=== PATIENT | male | born 1955 | race Caucasian/White ===

== ENCOUNTER 2017-03-11 19:47 | Inpatient (IN) | payer OTHER ==
[~2017-03-11] VITALS: Ht 172.7 cm; Wt 74.4 kg
--- NOTE | 2017-03-11 20:15 | NUR ---
OX SAT SEEN AT 92%, O2 2L VIA NC APPLIED, O2 SAT UP TO 98%
--- NOTE | 2017-03-11 20:17 | NUR ---
PT BIBA TO ED FOR CO DIZZINESS. PER MEDIC PT WAS DRIVING FROM [place] WHEN HE BEGAN FEELING DIZZY. FAMILY MEMBER THEN TOOK OVER DRIVING WHILE PT TOOK A NAP, WHEN PT WOKE UP HE SAID HE FELT BETTER AND BEGAN DRIVING "3 HRS" PER PT. AT APPROX 1900 PT WOKE FROM ANOTHER NAP AND REPORTS "FEELING FEAR" PER MEDIC AND THEN REPORTS NAUSEA AND ONE EPISODE OF VOMITTING. PT WAS GIVEN 4G ZOFRAN PO EN ROUTE. PT BS WAS 119 ON SCENE. 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 PT TAKES ASA REGULARLY; DENIES ALLERGIES TO MEDS. PT AAO4, RESP E/U, REPORTS HEADACHE OF 10/06. FAMILY MEMBERS AT BEDSIDE
--- NOTE | 2017-03-11 20:20 | NUR ---
PT CONNECTED TO FULL CM
[2017-03-11 21:03] LABS: BASOPHIL % 0.5 % (0-2); PLATELET COUNT 136 x10^3mcL (130-400); RED CELL DISTRIBUTION WIDTH 13.6 % (11.5-14.5)
--- NOTE | 2017-03-11 21:16 | NUR ---
PT IN BED IN POSITION OF COMFORT, CONVERSING WITH FAMILY. PT AAO4, RESP E/U, NO CO PAIN AT THIS TIME
[2017-03-11 21:21] LABS: CALCIUM 8.3 mg/dL (8.5-10.1); CREATININE SERUM 1.4 mg/dL (0.7-1.3); POTASSIUM SERUM 3.7 mmol/L (3.5-5.1)
[2017-03-11 21:25] LABS: ALBUMIN 3.5 g/dL (3.4-5.0); BILIRUBIN TOTAL 0.6 mg/dL (0.20-1.00); MAGNESIUM 1.9 mg/dL (1.8-2.4); TOTAL PROTEIN, SERUM 6.9 g/dL (6.4-8.2)
--- NOTE | 2017-03-11 22:40 | NUR ---
PT AMBULATED UP AND DOWN CANAS. STS HIS DIZZINESS IS AT 1/10 AT THIS TIME, STS NO PAIN. PT AAO4; RESP E/U
[2017-03-11] MEDS ORDERED: BYSTOLIC10 M1 PO (23:17)
[2017-03-11] MEDS ORDERED: VAS1025 PO (23:18)
--- NOTE | 2017-03-11 23:41 | NUR ---
REPORT GIVEN TO JER TO ASSUME CARE OF PT
[2017-03-12] VITALS (7 sets, daily range): BP systolic 123–161; BP diastolic 72–95
--- NOTE | 2017-03-12 00:12 | NUR ---
PT TRANSFERRED TO TELE BED 204B VIA RMONA ON CM WITH MY SELF, JESUS SIMON, AND EMT ESCOBAR AND RADHA AT PT SIDE. PT FAMILY ALSO AT THE BEDSIDE AT TIME OF TRANSFER. PT A&OX4, NO ACUTE DISTRESS NOTED, RESP EVEN AND UNLABORED, AMBUALTED TO TELE BED WITH STEADY GAIT. JESUS RANDLE AT THE BEDSIDE TO ASSUME C ARE OF PT. PT TRANSFERRED WITHOUT INCIDENCE.
--- NOTE | 2017-03-12 00:30 | NUR ---
RECEIVED PATIENT FROM ED VIA GUERNEY, PATIENT IN NO ACUTE DISTRESS, NO C/O PAIN AT THIS TIME, ALERT AND ORIENTED FAMILY AT BEDSIDE, TELE # 25 SB, ORIENTED PATIENT TO ROOM AND SURROUNDINGS, BED RAILS UP X 2, CALL LIGHT WITHIN REACH, WILL ENDORSE CARE TO PRIMARY NURSE JER LEE
--- NOTE | 2017-03-12 00:30 | NUR ---
RECEIVED PT. AWAKE AND ALERT. NO C/O PAIN. NO DISTRESS NOTED. IV ON L HAND, NS INFUSING. SAFETY MEASURES IN PLACE. INSTRUCTED PT TO CALL IF ASSISTANCE IS NEEDED. CALL LIGHT WITHIN REACH.
[2017-03-12 01:26] LABS: T3 TOTAL 1.06 ng/mL
[2017-03-12 01:31] LABS: UA SPECIFIC GRAVITY 1.025 (1.005-1.035); microscopic required? YES; urine erythrocyte NEGATIVE (NEGATIVE)
[2017-03-12 01:33] LABS: CHOLESTEROL/HDL RATIO 4.8; PHOSPHOROUS 3.1 mg/dL (2.5-4.9)
[2017-03-12 01:36] LABS: FREE T4 1.1 ng/dL (0.76-1.46); FREE THYROXINE INDEX 2.2 ug/dL (1.4-4.5); T4(THYROXINE) 6.2 ug/dL (4.7-13.3)
[2017-03-12 01:42] LABS: AMPHETAMINE QUAL UR NONE DETECTED (NEG <=1000)
[2017-03-12] MEDS ORDERED: LISINOPRIL40 MG PO (04:16)
[2017-03-12 06:18] LABS: BASOPHIL % 0.4 % (0-2); RED CELL DISTRIBUTION WIDTH 13.4 % (11.5-14.5)
[2017-03-12 06:24] LABS: CARBON DIOXIDE 25.5 mmol/L (21-32); CHLORIDE SERUM 107 mmol/L (98-107); CREATININE SERUM 1.3 mg/dL (0.7-1.3); GFR1 > 60 mL/min; GLUCOSE SERUM 109 mg/dL (74-106); MAGNESIUM 1.9 mg/dL (1.8-2.4); SODIUM SERUM 140 mmol/L (136-145)
--- NOTE | 2017-03-12 07:00 | NUR ---
PT SLEPT AT LONG INTERVALS DURING SHIFT. NO C/O PAIN. NO DISTRESS NOTED. SAFETY MEASURES MAINTAINED. BED IN LOWEST POSITION. SIDE RAILS UP X2. CALL LIGHT WITHIN REACH. WILL ENDORSE CONTINUITY OF CARE TO DAY SHIFT RN.
[2017-03-12 07:05] LABS: PLATELET COUNT 126 x10^3mcL (130-400)
--- NOTE | 2017-03-12 07:57 | NUR ---
PT RECEIVED DURING CHANGE OF SHIFT, A/OX4, DENIES DIZZINESS, TELE 25, SB, DENIES CHEST PAIN, PULSES PRESENT, NO EDEMA, LUNGS CTA ON RA, DENIES SOB, BREATHING EVEN AND UNLABORED, LBM 03/11/17, DENIES N/V/D, ABLE TO VOID, AMBULATORY, SKIN WARM DRY INTACT, DENIES ALL PAIN AT THIS TIME, IV TO LT HAND INFUSING NS AT 115ML/HR, CALM AND COOPERATIVE, CALL LIGHT WITHIN REACH, WILL CONTINUE TO MONITOR.
--- NOTE | 2017-03-12 08:30 | NUR ---
PT DENIES SOB, DENIES PAIN, VSS, MED EDUCATION GIVEN, CALL LIGHT WITHIN REACH, WILL CONTINUE TO MONITOR.
--- NOTE | 2017-03-12 08:30 | NUR ---
DR. COLEMAN AND RESIDENTS MAKING ROUNDS, PLAN OF CARE DISCUSSED.
--- NOTE | 2017-03-12 09:14 | NUR ---
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
--- NOTE | 2017-03-12 10:32 | NUR ---
ECHO IN PROGRESS, DENIES SOB, DENIES PAIN, WILL CONTINUE TO MONITOR.
--- NOTE | 2017-03-12 11:26 | NUR ---
PT DENIES SOB, DENIES PAIN, CALL LIGHT WITHIN REACH, VISITORS AT BEDSIDE, WILL CONTINUE TO MONITOR.
--- NOTE | 2017-03-12 12:08 | NUR ---
PT DENIES SOB, DENIES PAIN, SIGNED CONSENT TO RELEASE INFORMATION, CALL LIGHT WITHIN REACH, WILL CONTINUE TO MONITOR.
--- NOTE | 2017-03-12 13:14 | NUR ---
PT DENIES SOB, DENIES PAIN, VISITORS AT BEDSIDE, CALL LIGHT WITHIN REACH, WILL CONTINUE TO MONITOR.
--- NOTE | 2017-03-12 14:24 | NUR ---
PT DENIES SOB, DENIES PAIN, VISITORS AT BEDSIDE, CALL LIGHT WITHIN REACH, WILL CONTINUE TO MONITOR.
--- NOTE | 2017-03-12 15:14 | NUR ---
PT DENIES SOB, DENIES PAIN, VISITORS AT BEDSIDE, CALL LIGHT WITHIN REACH, WILL CONTINUE TO MONITOR.
--- NOTE | 2017-03-12 16:25 | NUR ---
PT DENIES SOB, DENIES PAIN, VISITORS AT BEDSIDE, CALL LIGHT WITHIN REACH, WILL CONTINUE TO MONITOR.
--- NOTE | 2017-03-12 17:12 | NUR ---
PT DENIES SOB, DENIES PAIN, CALL LIGHT WITHIN REACH, WILL CONTINUE TO MONITOR.
--- NOTE | 2017-03-12 18:36 | NUR ---
PT DENIES SOB, DENIES PAIN, FAMILY AT BEDSIDE, CALL LIGHT WITHIN REACH, WILL ENDORSE PT TO NEXT SHIFT.
--- NOTE | 2017-03-12 19:25 | NUR ---
SEEN IN BED AAOX4. DENIES DIZZINESS AT THIS TIME. SB AT 58 WITH BBB AND DEPRESSED T. DENIES CHEST PAIN. LUNG SOUND CTA. BREATHING EASY ON ROOM AIR. ABD SOFT AND ROUND. BRP. STS VOIDS FREELY. IVF NS AT 115ML/HR INFUSING WELL TO LT HAND IV SITE. SCD TO BLE. PLAN OF CARE DISCUSSED. CALL LIGHT PLACED WITHIN EASY REACH. SIDERAILS UP X2.
--- NOTE | 2017-03-13 05:49 | NUR ---
NO ANY DISTRESS THROUGHOUT SHIFT. DENIES CHEST PAIN OR DIZZINESS. IVF NS INFUSING WELL.
[2017-03-13 05:58] VITALS: BP 126/83
[2017-03-13 06:12] LABS: BASOPHIL % 0.7 % (0-2); RED CELL DISTRIBUTION WIDTH 13.4 % (11.5-14.5)
[2017-03-13 06:22] LABS: CALCIUM 8.3 mg/dL (8.5-10.1); CHLORIDE SERUM 108 mmol/L (98-107); CREATININE SERUM 1.3 mg/dL (0.7-1.3); GFR1 > 60 mL/min; GLUCOSE SERUM 98 mg/dL (74-106); POTASSIUM SERUM 4.3 mmol/L (3.5-5.1); SODIUM SERUM 140 mmol/L (136-145)
[2017-03-13 06:53] LABS: PLATELET COUNT 125 x10^3mcL (130-400)
--- NOTE | 2017-03-13 07:15 | NUR ---
PT RECEIVED DURING CHANGE OF SHIFT, A/OX4, DENIES LIGHT HEADEDNESS/DIZZINES, TELE 25, SB BBB, DENIES CHEST PAIN, PULSES PRESENT, NO EDEMA, LUNGS CTA ON RA, DENIES SOB, BOWEL SOUNDS ACTIVE, LBM 03/11/17, DENIES N/V/D PT ABLE TO VOID, AMBULATORY, SKIN WARM DRY INTACT, DENIES PAIN, IV TO LT HAND INFUSING NS AT 115ML/HR, CALL LIGHT WITHIN REACH, WILL CONTINUE TO MONITOR.
--- NOTE | 2017-03-13 08:11 | NUR ---
PT DENIES SOB, DENIES PAIN, WATCHING TV, MED EDUCATION GIVEN, CALL LIGHT WITHIN REACH, WILL CONTINUE TO MONITOR.
[2017-03-13] MEDS ORDERED: ASPIR 8181 MG PO (08:33)
[2017-03-13] MEDS ORDERED: LIPI10 PO (08:33)
--- NOTE | 2017-03-13 09:29 | NUR ---
DR. CHEATHAM AND RESIDENTS MAKING ROUNDS, PT MADE AWARE THEY WILL BE ABLE TO DISCHARGE TODAY.
[2017-03-13 09:42] VITALS: BP 145/94
--- NOTE | 2017-03-13 10:12 | NUR ---
PT DENIES SOB, DENIES PAIN, CALL LIGHT WITHIN REACH, WILL CONTINUE TO MONITOR.
[2017-03-13 10:15] VITALS: BP 145/94
--- NOTE | 2017-03-13 10:58 | NUR ---
PT AND FAMILY RECEIVED DISCHARGE INSTRUCTIONS, VERBALIZED UNDERSTANDING, ALL QUESTIONS ANSWERED, SCRIPT GIVEN, IV DC'D CATHETER INTACT, TELE 25 DC'D AND RETURNED TO MONITOR STATION, ARMBAND DC'D, PT DRESSED AND ESCORTED DOWN TO DISCHARGE OFFICE.
== END 2017-03-13 10:55 | disposition home or self-care (01) | DRG 70 ==
LOC: ED 19:47 → DU 23:16
PROVIDERS: Emergency Medicine; Family Medicine; ADMIT Family Medicine
DX: G98.8 Other disorders of nervous system (principal); N17.0 Acute kidney failure with tubular necrosis; I10 Essential (primary) hypertension; R73.03 Prediabetes; E78.5 Hyperlipidemia, unspecified; E78.00 Pure hypercholesterolemia, unspecified; E83.51 Hypocalcemia; E87.8 Other disorders of electrolyte and fluid balance, not elsewhere classified; I49.9 Cardiac arrhythmia, unspecified
CPT/HCPCS: 82962; 83880; 84439; J2405; J7030; J8597; Q0092